=== PATIENT | male | born 1960 | race Caucasian/White ===

== ENCOUNTER 2022-09-03 23:39 | Inpatient (IN) ==
[2022-09-04 00:42] LABS: Basophils % 0.2 % (0.0-0.8); Eosinophils % 0.3 % (0.00-10.9); Hemoglobin 14.8 GM/DL (14.0-18.0); Immature Granulocytes % 0.8 %; Immature Granulocytes Absolute 0.09 #; Lymphocytes % 8.8 % (21.2-54.2); Mean Corpuscular HGB Conc 34.4 GM/DL (32-36); Mean Platelet Volume 11.3 FL (9.6-12.0); Monocytes # 0.7 10*3/uL (0.11-0.8); Monocytes % 5.9 % (1.7-12.7); Platelet Count 210 T/CUMM (130-400); Red Blood Count 5.18 MC/CUMM (3.8-5.5); Red Cell Distribution Width 12.7 % (9.3-17.3); White Blood Count 11.6 T/CUMM (4-12)
[2022-09-04 00:49] LABS: PT Patient Result 10.7 SECS (10.1-12.1); Partial Thromboplastin Time 25.3 SECS (23.7-32.9)
[2022-09-04 00:53] LABS: Blood Urea Nitrogen 16 MG/DL (7-18); Calcium 8.5 MG/DL (8.5-10.1); Carbon Dioxide 25 MMOL/L (21-32); Chloride 88 MMOL/L (98-107); Glucose 124 MG/DL (74-106); Osmolality,Calculated 254.4 MOS/KG (273-304); Potassium 3.8 MMOL/L (3.5-5.1); Sodium 126 MMOL/L (136-145)
[2022-09-04 01:09] LABS: Bilirubin,Urine Negative (Negative); Blood, Urine Negative (Negative); Glucose,Urine (UA) Negative (Negative); Ketones,Urine 80 mg/dL (Negative); Mucus,Urine Occasional /LPF (Occasional); Nitrite,Urine Negative (Negative); Protein,Urine Negative (Negative); Squamous Epithelial Cell,Urine Occasional /HPF (0-10); Urine Appearance CLEAR (Clear); Urine Color Yellow (Yellow); Urine Specific Gravity 1.041 (1.001-1.035); Urine Urobilinogen < 2.0 eU/dL (<2.0)
[2022-09-04 01:21] LABS: Barbiturates Screen,Urine Negative (Negative); Benzodiazepines Screen,Urine Negative (Negative); Cannabinoid Screen,Urine Negative (Negative); Opiate Screen,Urine Negative (Negative); Phencyclidine Screen,Urine Negative (Negative)
[2022-09-04] MEDS ORDERED: SODIUM CHLORIDE 0.9% 1,000 ML IV STA (01:24)
[2022-09-04] MEDS ORDERED: ACETAMINOPHEN 325 MG TABLET PO ONE (01:37)
[2022-09-04] MEDS ORDERED: ACETAMINOPHEN 500 MG TABLET ONE (01:38)
[2022-09-04] MEDS ORDERED: ACETAMINOPHEN 325 MG TABLET PO PRN (03:15)
[2022-09-04] MEDS ORDERED: ONDANSETRON 4 MG/2 ML VIAL IV PRN (03:15)
[2022-09-04] MEDS ORDERED: hydrALAZINE 20 MG/1 ML VIAL IV PRN (03:15)
[2022-09-04] MEDS ORDERED: ASPIRIN CHEW 81 MG TABLET PO STA (03:15)
[2022-09-04] MEDS ORDERED: MAGNESIUM SULF RIDER 2 GM/50 ML PREMIX IV ONE (03:15)
[2022-09-04] MEDS: SODIUM CHLORIDE 0.9% 1,000 ML IV SCH ×2 (04:13→20:03)
[2022-09-04 06:42] LABS: Risk Ratio 3.91; VLDL Cholesterol 16.6 MG/DL
[2022-09-04] MEDS: ASPIRIN 325 MG TABLET PO SCH (09:56)
[2022-09-04] MEDS: TAMSULOSIN 0.4 MG CAPSULE PO SCH (09:56)
[2022-09-04] MEDS: hydroCHLOROthiazide 12.5 MG CAPSULE PO SCH (09:56)
[2022-09-04] MEDS: ENOXAPARIN 40 MG/0.4 ML SYRINGE SUBCUT SCH (09:56)
[2022-09-04] MEDS: VALSARTAN 160 MG TABLET PO SCH (09:56)
[2022-09-04] MEDS: amLODIPine 5 MG TABLET PO SCH (09:56)
[2022-09-04] MEDS: SIMVASTATIN 20 MG TABLET PO SCH (20:42)
[2022-09-05] MEDS: SODIUM CHLORIDE 0.9% 1,000 ML IV SCH ×2 (01:11→11:00)
[2022-09-05 06:04] LABS: Basophils % 0.3 % (0.0-0.8); Eosinophils # 0.1 10*3/uL (0.0-0.87); Eosinophils % 1.8 % (0.00-10.9); Hematocrit 41.2 VOL% (42.0-52.0); Immature Granulocytes % 0.5 %; Immature Granulocytes Absolute 0.03 #; Lymphocytes # 1.4 10*3/uL (1.4-4.0); Lymphocytes % 22.5 % (21.2-54.2); Mean Corpuscular Volume 84.1 FL (87-102); Mean Platelet Volume 10.9 FL (9.6-12.0); Monocytes # 0.8 10*3/uL (0.11-0.8); Monocytes % 13.2 % (1.7-12.7); Neutrophils % 61.7 % (38.7-73.9); Platelet Count 186 T/CUMM (130-400); Red Cell Distribution Width 13.4 % (9.3-17.3); White Blood Count 6.1 T/CUMM (4-12)
[2022-09-05 06:24] LABS: Albumin 2.9 G/DL (3.4-5.0); Bilirubin,Total 0.5 MG/DL (0.20-1.00); Calcium 8.2 MG/DL (8.5-10.1); Osmolality,Calculated 279.4 MOS/KG (273-304); Potassium 3.9 MMOL/L (3.5-5.1); Total Protein 6.2 G/DL (6.4-8.2)
[2022-09-05] MEDS: VALSARTAN 160 MG TABLET PO SCH (08:52)
[2022-09-05] MEDS: hydroCHLOROthiazide 12.5 MG CAPSULE PO SCH (08:52)
[2022-09-05] MEDS: ASPIRIN 325 MG TABLET PO SCH (08:52)
[2022-09-05] MEDS: amLODIPine 5 MG TABLET PO SCH (08:53)
[2022-09-05] MEDS: TAMSULOSIN 0.4 MG CAPSULE PO SCH (08:53)
[2022-09-05] MEDS: ENOXAPARIN 40 MG/0.4 ML SYRINGE SUBCUT SCH (08:58)
[2022-09-05] MEDS: DEXTROSE 5% 1,000 ML IV SCH (11:36)
[2022-09-05] MEDS: PANTOPRAZOLE 40 MG TABLET PO SCH (17:38)
[2022-09-05] MEDS: SIMVASTATIN 20 MG TABLET PO SCH (21:49)
[2022-09-06] MEDS: DEXTROSE 5% 1,000 ML IV SCH (01:05)
[2022-09-06 05:35] LABS: Calcium 8.2 MG/DL (8.5-10.1); Osmolality,Calculated 282.3 MOS/KG (273-304); Potassium 3.8 MMOL/L (3.5-5.1)
[2022-09-06] MEDS: PANTOPRAZOLE 40 MG TABLET PO SCH (06:35)
[2022-09-06] MEDS: TAMSULOSIN 0.4 MG CAPSULE PO SCH (08:38)
[2022-09-06] MEDS: VALSARTAN 160 MG TABLET PO SCH (08:38)
[2022-09-06] MEDS: ENOXAPARIN 40 MG/0.4 ML SYRINGE SUBCUT SCH (08:39)
[2022-09-06] MEDS: ASPIRIN 325 MG TABLET PO SCH (08:39)
[2022-09-06] MEDS: amLODIPine 5 MG TABLET PO SCH (08:39)
[2022-09-06 12:10] VITALS: BP 175/98
== END 2022-09-06 12:42 | disposition home or self-care (01) | DRG 640 ==
LOC: EDUNIT# → EDBD → N.ED 23:39 → N.EDINP 09-04 03:15 → N.5E 09-04 10:46
PROVIDERS: ADMIT Internal Medicine; ATTEND Internal Medicine